=== PATIENT | male | born 1970 | race Caucasian/White ===

== ENCOUNTER 2022-06-07 21:06 | Inpatient (IN) | payer OTHER ==
[2022-06-07] MEDS ORDERED: Sodium Chloride 0.9% 10 ML Syringe FLUSH PRN (21:14)
[2022-06-07] MEDS ORDERED: Sodium Chloride 0.9% 1,000 ML IV SCH (21:15)
[2022-06-07] MEDS ORDERED: Sodium Chloride 0.9% 1,000 ML IV ONE (22:07)
[2022-06-07 22:18] LABS: ESTIMATED GFR 33 mL/min (>60)
[2022-06-07 22:26] LABS: CORONAVIRUS COVID-19 NAA NEGATIVE (NEGATIVE)
[2022-06-07] MEDS ORDERED: Lactated Ringers 1,000 ML IV ONE (23:19)
[2022-06-07] MEDS: Insulin Regular in 0.9 % NACL 100 ML IV SCH (23:37)
[2022-06-08] MEDS ORDERED: Lactated Ringers 1,000 ML IV ONE ×6 (00:48→21:00)
[2022-06-08] MEDS ORDERED: Lactated Ringers 1,000 ML ONE (00:48)
[2022-06-08] MEDS ORDERED: Iopamidol 755 Mg/ML 100 ML Bottle IVPUSH ONE ×3 (01:20→16:05)
[2022-06-08] MEDS: Lactated Ringers 1,000 ML IV ONE ×2 (03:19→03:22)
[2022-06-08] MEDS ORDERED: NS + KCl 20mEq/L 1,000 ML IV SCH (03:30)
[2022-06-08] MEDS ORDERED: Sodium Chloride 0.9% 10 ML Syringe FLUSH PRN (06:31)
[2022-06-08] MEDS ORDERED: Docusate Sodium 100 MG Cap PO PRN (07:51)
[2022-06-08] MEDS ORDERED: Acetaminophen 325 MG Tab PO PRN (07:51)
[2022-06-08] MEDS ORDERED: Ondansetron 4 MG/2 ML SDV IV PRN (07:51)
[2022-06-08] MEDS: Sodium Chloride 0.9% 1,000 ML IV SCH ×2 (08:38→12:35)
[2022-06-08] MEDS: Insulin Lispro 100 Unit/ML 3 ML KwikPen SUBCUT SCH ×3 (08:45→22:22)
[2022-06-08] MEDS: Heparin Sodium 5,000 Units/ML Vial SUBCUT SCH ×3 (09:11→23:34)
[2022-06-08 10:39] LABS: HEMOGLOBIN A1C 13.7 %
[2022-06-08] MEDS: Insulin Regular in 0.9 % NACL 100 ML IV SCH (14:56)
[2022-06-08] MEDS ORDERED: Sodium Chloride 0.9% 10 ML Syringe FLUSH ONE ×2 (15:20→16:05)
[2022-06-08] MEDS ORDERED: Sodium Chloride 0.9% 100 ML IV SCH ×2 (15:30→16:15)
[2022-06-08] MEDS: Dextrose 5% in Water 1,000 ML IV SCH (16:24)
[2022-06-08] MEDS: Metoclopramide 10 MG/2 ML SDV IVPUSH SCH ×2 (16:29→22:21)
[2022-06-08] MEDS ORDERED: Potassium Chloride 10 MEQ in Premix Bag 1 BAG IV ONE (17:24)
[2022-06-08] MEDS: Potassium Chloride 10 MEQ in Premix Bag 1 BAG IV SCH ×4 (18:02→22:21)
[2022-06-08] MEDS ORDERED: cefTRIAXone 2 GM in Sodium Chloride 0.9% 100 ML IV ONE (20:00)
[2022-06-08] MEDS: Levofloxacin/Dextrose 5%-Water 750 MG in Premix Bag 1 BAG IV SCH (20:36)
[2022-06-08] MEDS ORDERED: Insulin Regular in 0.9 % NACL 100 ML IV SCH (21:30)
[2022-06-09] MEDS ORDERED: Lactated Ringers 1,000 ML IV ONE
[2022-06-09] MEDS ORDERED: VANCOmycin 1.25 GM/250 ML 1.25 GM in Premix Bag 1 BAG IV ONE (00:15)
[2022-06-09] MEDS: Insulin Lispro 100 Unit/ML 3 ML KwikPen SUBCUT SCH ×4 (04:15→21:18)
[2022-06-09] MEDS: Metoclopramide 10 MG/2 ML SDV IVPUSH SCH ×4 (04:18→23:40)
[2022-06-09] MEDS: Potassium Chloride 10 MEQ in Premix Bag 1 BAG IV SCH ×4 (09:09→12:15)
[2022-06-09] MEDS: Heparin Sodium 5,000 Units/ML Vial SUBCUT SCH ×3 (09:19→23:40)
[2022-06-09] MEDS: Dextrose 5% in Water 1,000 ML IV SCH ×2 (11:46→20:37)
[2022-06-09] MEDS: VANCOmycin 750 MG/150 ML 750 MG in Premix Bag 1 BAG IV SCH ×2 (12:10→23:39)
[2022-06-09] MEDS: Levofloxacin/Dextrose 5%-Water 750 MG in Premix Bag 1 BAG IV SCH (20:37)
[2022-06-10] MEDS: Insulin Lispro 100 Unit/ML 3 ML KwikPen SUBCUT SCH ×2 (01:40→07:46)
[2022-06-10] MEDS: Dextrose 5% in Water 1,000 ML IV SCH (06:30)
[2022-06-10] MEDS: Metoclopramide 10 MG/2 ML SDV IVPUSH SCH ×2 (06:30→10:35)
[2022-06-10] MEDS ORDERED: traMADol 50 MG Tab PO PRN (07:20)
[2022-06-10] MEDS: Heparin Sodium 5,000 Units/ML Vial SUBCUT SCH (07:32)
[2022-06-10] MEDS: Potassium Chloride 10 MEQ in Premix Bag 1 BAG IV SCH ×3 (07:33→10:28)
[2022-06-10] MEDS ORDERED: Potassium Chloride 20 MEQ Tab.ER PO ONE (10:45)
[2022-06-10] MEDS ORDERED: ceFAZolin 2 GM in Sodium Chloride 0.9% 50 ML IV SCH (12:00)
== END 2022-06-10 10:20 | DRG 871 ==
LOC: JD.ED 21:06 → JD.ICU 06-08 06:31
PROVIDERS: ADMIT Hospitalist; ATTEND Hospitalist
DX: A41.9 Sepsis, unspecified organism (principal); E10.10 Type 1 diabetes mellitus with ketoacidosis without coma; G92.8 Other toxic encephalopathy; I76 Septic arterial embolism; N17.9 Acute kidney failure, unspecified; F17.210 Nicotine dependence, cigarettes, uncomplicated; Z20.822 Contact with and (suspected) exposure to COVID-19; E86.0 Dehydration; K80.20 Calculus of gallbladder without cholecystitis without obstruction; J98.4 Other disorders of lung; B95.8 Unspecified staphylococcus as the cause of diseases classified elsewhere; E87.6 Hypokalemia; R63.4 Abnormal weight loss; Z79.899 Other long term (current) drug therapy; Z68.22 Body mass index [BMI] 22.0-22.9, adult
CPT/HCPCS: 0241U; 36415; 70450; 70450-26; 71045; 71045-26; 71260; 71260-26; 74176; 74176-26; 74177; 74177-26; 76705; 76705-26; 80048; 80053; 80202; 81001; 82009; 82378; 82800; 82947; 83036; 83605; 83690; 83735; 83930; 84145; 84484; 85025; 85652; 86140; 86301; 87040; 87077; 87154; 87186; 93005; 93010; 93307; 96361; 96365; 96366; 97162-GP; 97166-GO; 97530-GO; 99223; 99233; 99239; 99285; 99285-25; A9270-GY; J0696; J1644; J1815; J1956; J2765; J3370; J3480; J3490; J7030; J7060; J7120; Q9967

== ENCOUNTER 2022-12-02 13:23 | Day surgery (SDC) | payer OTHER ==
[2022-12-02] MEDS: Polymyxin B/Trimethoprim 10 ML Bottle EYELF SCH ×3 (11:37→13:19)
[2022-12-02] MEDS: Brimonidine 0.2% Ophth Soln 5 ML Bottle EYELF SCH ×2 (11:40→12:15)
[2022-12-02] MEDS: Phenylephrine 2.5% Ophth Soln 2 ML Bot EYELF SCH ×5 (11:44→13:03)
[2022-12-02] MEDS: Tropicamide 1% Ophth Soln 3 ML Bottle EYELF SCH ×4 (11:48→12:35)
[2022-12-02] MEDS: Proparacaine 0.5% Ophth Soln 15 ML Bottle EYEBOTH SCH ×4 (12:41→13:09)
[~2022-12-02 13:23] MED LIST: Brimonidine 0.2% Ophth Soln 5 ML Bottle EYELF SCH; Cefuroxime 10 MG/ML SYRINGE EYELF SCH; Lidocaine 1% 50 ML MDV INJECT SCH; Lidocaine 1% PF 2 ML SDV INJECT SCH; Pilocarpine 4% Ophth Soln 15 ML Bot EYELF SCH
== END 2022-12-02 13:32 | disposition home or self-care (01) ==
LOC: JD.SDS 13:23
PROVIDERS: ATTEND Ophthalmology
DX: E11.36 Type 2 diabetes mellitus with diabetic cataract (principal); H25.812 Combined forms of age-related cataract, left eye; H17.813 Minor opacity of cornea, bilateral; H57.813 Brow ptosis, bilateral; H02.834 Dermatochalasis of left upper eyelid; H02.831 Dermatochalasis of right upper eyelid; Z98.41 Cataract extraction status, right eye; Z96.1 Presence of intraocular lens; Z79.84 Long term (current) use of oral hypoglycemic drugs; Z79.899 Other long term (current) drug therapy
CPT/HCPCS: 66984; A9270; J0697; 00142; J3490; V2788-GY